=== PATIENT | male | born 1955 | race Caucasian/White ===

== ENCOUNTER 2023-12-06 07:49 | Emergency (ER) | payer BC, OTHER ==
--- OUTSIDE RECORDS SUMMARY | 2023-12-06 07:55 | XMS REPORT | Continuity of Care Document ---
Author Name Unknown Address [address] [place] [address] [facility] Address [address] [place] [address] Care Team Providers Care Textile Science Technician Name Role Phone Lesley Sweeney MD Primary Care Physician Maggie Truong RN Attending Clinician Unavailab Lesley Beyer MD Attending Clinician [phone]- [phone] Lab, Ang - Db Attending Clinician Unavailable LESLEY SWEENEY Attending Clinician Unasalvador meyers Doctor Unassigned, Chandler Attending Clinician U navailable DENISE MORAN Attending Clinician Unavailable Pob, Adc Lab Main Attending Clinician UnavailDenise Mora MD Attending Clinician , Adc Surg Spec Procedure Attending Clinician Unavailable Adelaida Harris Attending Clinician [phone] ADELAIDA BRISCOE Attending Clinician Unavailable Lab, Adc Fam Pob I Attending Clinician Unavailab le Payers Payer Name Policy Type Policy Number Effective Date Expirati on Date Source Problems Condition Name Condition Details Condition Category Status Onset Date Resolution Date Last Treatment Date Treating Clinician Comments Source Bipolar disorder in full remission Bipolar disorder in full remission Disease Active 2015-06 00:00: 00 [facility] Gout Gout Disease Active 2015-06 00:00: 00 [facility] Arthritis Arthritis Disease Active 2015-06- 00:00: 00 [facility] Allergies, Adverse Reactions, Alerts Allergy Name Allergy Type Status Severity Reaction(s) Onset Date Inactive Date Treating Clinician Comments Source NO KNOWN ALLERGIE S Drug Class Active [facility] Social History Social Habit Start Date Stop Date Quantity Comments Source [facility] Exposure to SARS-CoV-2 (event) 2022-10-27 00:00:00 2022-11-06 09:47:00 Not sure [facility] Alcohol intake 2022-11-06 00:00:00 2022-11-06 00:00:00 0 /d [facility] Tobacco use and exposure 2022-11-06 00:00:00 2022-11-06 00:00:00 Smokeless tobacco non-user [facility] History of Social function 2022-11-06 00:00:00 2022-11-06 00:00:00 [facility] Alcoholic beverage intake 2022-11-06 00:00:00 2022-11-06 00:00:00 0 /d [facility] Sex assigned at 1955 00:00:00 1955 00:00:00 [facility] Smoking Status Start Date Stop Date Source Never smoked tobacco [facility] Medications Ordered Medication Name Filled Medication Name Start Date Stop Date Current Medication? Ordering Clinician Indication Dosage Frequency Signature (SIG) Comments Components Source ALLOPURINOL 300 mg tablet 09-24 00:00: 00 Yes [id number] TAKE 1 TABLET BY MOUTH EVERY DAY [facility] TAMSULOSIN 0.4 mg 24 hr capsule 09-22 00:00: 00 Yes [id number] TAKE 1 CAPSULE BY MOUTH EVERY DAY [facility] ALLOPURINOL 300 mg tablet 06-30 00:00: 00 Yes [id number] TAKE 1 TABLET BY MOUTH EVERY DAY [facility] LITHIUM CARBONATE 300 mg capsule 2022-06 00:00: 00 Yes [id number] TAKE 2 CAPSULES BY MOUTH EVERY DAY [facility] ALLOPURINOL 300 mg tablet 2022-06 00:00: 00 06-30 00:00 :00 No [id number] TAKE 1 TABLET BY MOUTH EVERY DAY [facility] TAMSULOSIN 0.4 mg 24 hr capsule 2023-1 0-06 00:00: 00 09-22 00:00 :00 No [id number] TAKE 1 CAPSULE BY MOUTH EVERY DAY [facility] TAMSULOSIN 0.4 mg 24 hr capsule 3-0 9-14 00:00: 00 Yes [id number] TAKE 1 CAPSULE BY MOUTH EVERY DAY [facility] TAMSULOSIN 0.4 mg 24 hr capsule 3-0 8-08 00:00: 00 Yes [id number] TAKE 1 CAPSULE BY MOUTH EVERY DAY [facility] TAMSULOSIN 0.4 mg 24 hr capsule 3-0 7-17 00:00: 00 Yes [id number] TAKE 1 CAPSULE BY MOUTH EVERY DAY [facility] TAMSULOSIN 0.4 mg 24 hr capsule 3-0 6-19 00:00: 00 Yes [id number] TAKE 1 CAPSULE BY MOUTH EVERY DAY [facility] LITHIUM CARBONATE 300 mg capsule 2022-0 4-19 00:00: 00 05-02 00:00 :00 No [id number] TAKE 2 CAPSULES BY MOUTH EVERY DAY [facility] TAMSULOSIN 0.4 mg 24 hr capsule 2022-0 4-19 00:00: 00 12-02 00:00 :00 No [id number] TAKE 1 CAPSULE BY MOUTH EVERY DAY [facility] ALLOPURINOL 300 mg tablet 2022-0 3-30 00:00: 00 04-01 00:00 :00 No [id number] TAKE 1 TABLET BY MOUTH EVERY DAY [facility] lithium carbonate 300 mg capsule 2022-0 3-22 00:00: 00 10-02 00:00 :00 No [id number] TAKE 2 CAPSULES BY MOUTH EVERY DAY [facility] tamsulosin 0.4 mg 24 hr capsule 2022-0 3-22 00:00: 00 10-02 00:00 :00 No [id number] TAKE 1 CAPSULE BY MOUTH EVERY DAY [facility] ALLOPURINOL 300 mg tablet 2021-1 2-29 00:00: 00 09-13 01:06 :16 No [id number] TAKE 1 TABLET BY MOUTH EVERY DAY [facility] ALLOPURINOL 300 mg tablet 2022-0 8-24 00:00: 00 06-13 00:00 :00 No [id number] TAKE 1 TABLET BY MOUTH EVERY DAY [facility] ALLOPURINOL 300 mg tablet 3- 00:00: 00 02-06 00:00 :00 No [id number] TAKE 1 TABLET BY MOUTH EVERY DAY [facility] LITHIUM CARBONATE 300 mg capsule 2020-06 00:00: 00 09-04 00:00 :00 No [id number] TAKE 2 CAPSULES BY MOUTH EVERY DAY [facility] TAMSULOSIN 0.4 mg 24 hr capsule 2020-06 00:00: 00 09-04 00:00 :00 No [id number] TAKE 1 CAPSULE BY MOUTH EVERY DAY [facility] ciprofloxac in HCl 500 mg tablet 08-21 00:00: 00 09-22 00:00 :00 No [id number] 500mg Take 1 tablet by mouth every 12 (twelve) hours. [facility] cephALEXin 250 mg capsule 07-17 00:00: 00 07-23 05:59 :00 No [id number] 500mg Take 2 capsules by mouth every 12 (twelve) hours for 5 days. [facility] ALLOPURINOL 300 mg tablet 1-10 00:00: 00 08-16 00:00 :00 No [id number] TAKE 1 TABLET BY MOUTH EVERY DAY [facility] iohexoL (OMNIPAQUE 300-50 mL)) injection 50 mL 2019-06 16:30: 00 05-23 14:45 :00 No 50mL 50 mL, Urethral, ONCE, 1 dose, 05/23/20 at 1030, Routine [facility] cephALEXin 250 mg capsule 2019-06 00:00: 00 05-22 05:59 :00 No [id number] 500mg Take 2 capsules by mouth every 12 (twelve) hours for 5 days. [facility] LITHIUM CARBONATE 300 mg capsule 2019-06 00:00: 00 06-13 00:00 :00 No [id number] TAKE 2 CAPSULES BY MOUTH EVERY DAY [facility] TAMSULOSIN 0.4 mg 24 hr capsule 2019-06 0-29 00:00: 00 04-27 00:00 :00 No [id number] TAKE 1 CAPSULE BY MOUTH EVERY DAY [facility] tamsulosin 0.4 mg 24 hr capsule 2019-06 0 00:00: 00 Yes [id number] .4mg Take 1 capsule by mouth daily. [facility] allopurinoL 300 mg tablet 2019-06 0 00:00: 00 06-25 00:00 :00 No [id number] 300mg Take 1 tablet by mouth daily. [facility] lithium carbonate 300 mg capsule 2019-06 0 00:00: 00 05-08 00:00 :00 No [id number] 600mg Take 2 capsules by mouth daily. [facility] tamsulosin 0.4 mg 24 hr capsule 8-05 00:00: 04-11 00:00 :00 No [id number] .4mg Take 1 capsule by mouth daily. [facility] allopurinoL 300 mg tablet 8-05 00:00: 00 04-11 00:00 :00 No [id number] 300mg Take 1 tablet by mouth daily. [facility] ALLOPURINOL 300 mg tablet 01-10 00:00: 00 Yes [id number] TAKE 1 TABLET BY MOUTH EVERY DAY [facility] TAMSULOSIN 0.4 mg 24 hr capsule 01-10 00:00: 00 Yes [id number] TAKE 1 CAPSULE BY MOUTH EVERY DAY [facility] TAMSULOSIN 0.4 mg 24 hr capsule 2018-06 2-31 00:00: 00 01-10 00:00 :00 No [id number] TAKE 1 CAPSULE BY MOUTH EVERY DAY [facility] ALLOPURINOL 300 mg tablet 9-04 00:00: 00 Yes [id number] TAKE 1 TABLET BY MOUTH EVERY DAY [facility] LITHIUM CARBONATE 300 mg capsule 0 9-04 00:00: 00 04-11 00:00 :00 No [id number] TAKE 2 CAPSULES BY MOUTH EVERY DAY [facility] TAMSULOSIN 0.4 mg 24 hr capsule 0 4-10 00:00: 00 Yes [id number] TAKE ONE CAPSULE BY MOUTH EVERY DAY [facility] TAMSULOSIN 0.4 mg 24 hr capsule 0 2-08 00:00: 00 Yes TAKE ONE CAPSULE BY MOUTH EVERY DAY [facility] ALLOPURINOL 300 mg tablet 8-23 00:00: 00 Yes [id number] TAKE 1 TABLET BY MOUTH EVERY DAY [facility] LITHIUM CARBONATE 300 mg capsule 8-21 00:00: 00 Yes [id number] TAKE 2 CAPSULES BY MOUTH EVERY DAY [facility] Immunizations Ordered Immunization Name Filled Immunization Name Date Status Comments Source HEP B, Adult Dosage 2020-09-22 00:00:00 Completed [facility] HEP B, Adult Dosage 2020-09-22 00:00:00 Completed [facility] HEP B, Adult Dosage 2020-09-22 00:00:00 Completed [facility] HEP B, Adult Dosage 2020-09-22 00:00:00 Completed [facility] HEP B, Adult Dosage 2020-09-22 00:00:00 Completed [facility] HEP B, Adult Dosage 2020-09-22 00:00:00 Completed [facility] HEP B, Adult Dosage 2020-09-22 00:00:00 Completed [facility] HEP B, Adult Dosage 2020-09-22 00:00:00 Completed [facility] HEP B, Adult Dosage 2020-09-22 00:00:00 Completed [facility] HEP B, Adult Dosage 2020-09-22 00:00:00 Completed [facility] HEP B, Adult Dosage 2020-09-22 00:00:00 Completed [facility] HEP B, Adult Dosage 2020-09-22 00:00:00 Completed [facility] HEP B, Adult Dosage 2020-09-22 00:00:00 Completed [facility] HEP B, Adult Dosage 2020-09-22 00:00:00 Completed [facility] HEP B, Adult Dosage 2020-09-22 00:00:00 Completed [facility] HEP B, Adult Dosage 2020-09-22 00:00:00 Completed [facility] HEP B, Adult Dosage 2020-09-22 00:00:00 Completed [facility] HEP B, Adult Dosage 2020-09-22 00:00:00 Completed [facility] HEP B, Adult Dosage 2020-09-22 00:00:00 Completed [facility] HEP B, Adult Dosage 2020-09-22 00:00:00 Completed [facility] HEP B, Adult Dosage 2020-09-22 00:00:00 Completed [facility] HEP B, Adult Dosage 2020-09-22 00:00:00 Completed [facility] HEP B, Adult Dosage 2020-09-22 00:00:00 Completed [facility] HEP B, Adult Dosage 2020-09-22 00:00:00 Completed [facility] HEP B, Adult Dosage 2020-09-22 00:00:00 Completed [facility] HEP B, Adult Dosage 2020-09-22 00:00:00 Completed [facility] HEP B, Adult Dosage 2020-09-22 00:00:00 Completed [facility] HEP B, Adult Dosage 2020-09-22 00:00:00 Completed [facility] HEP B, Adult Dosage 2020-09-22 00:00:00 Completed [facility] HEP B, Adult Dosage 2020-09-22 00:00:00 Completed [facility] Twinrix (hep a/hep b) 2020-08-21 00:00:00 Completed [facility] TDAP 2020-08-21 00:00:00 Completed [facility] Pneumococcal Polysaccharide, PPSV23 (PNEUMOVAX) 2020-08-21 00:00:00 Completed [facility] Twinrix (hep a/hep b) 2020-08-21 00:00:00 Completed [facility] TDAP 2020-08-21 00:00:00 Completed [facility] Pneumococcal Polysaccharide, PPSV23 (PNEUMOVAX) 2020-08-21 00:00:00 Completed [facility] Twinrix (hep a/hep b) 2020-08-21 00:00:00 Completed [facility] TDAP 2020-08-21 00:00:00 Completed [facility] Pneumococcal Polysaccharide, PPSV23 (PNEUMOVAX) 2020-08-21 00:00:00 Completed [facility] Twinrix (hep a/hep b) 2020-08-21 00:00:00 Completed [facility] TDAP 2020-08-21 00:00:00 Completed [facility] Pneumococcal Polysaccharide, PPSV23 (PNEUMOVAX) 2020-08-21 00:00:00 Completed [facility] Twinrix (hep a/hep b) 2020-08-21 00:00:00 Completed [facility] TDAP 2020-08-21 00:00:00 Completed [facility] Pneumococcal Polysaccharide, PPSV23 (PNEUMOVAX) 2020-08-21 00:00:00 Completed [facility] Twinrix (hep a/hep b) 2020-08-21 00:00:00 Completed [facility] TDAP 2020-08-21 00:00:00 Completed [facility] Pneumococcal Polysaccharide, PPSV23 (PNEUMOVAX) 2020-08-21 00:00:00 Completed [facility] Twinrix (hep a/hep b) 2020-08-21 00:00:00 Completed [facility] TDAP 2020-08-21 00:00:00 Completed [facility] Pneumococcal Polysaccharide, PPSV23 (PNEUMOVAX) 2020-08-21 00:00:00 Completed [facility] Twinrix (hep a/hep b) 2020-08-21 00:00:00 Completed [facility] TDAP 2020-08-21 00:00:00 Completed [facility] Pneumococcal Polysaccharide, PPSV23 (PNEUMOVAX) 2020-08-21 00:00:00 Completed [facility] Twinrix (hep a/hep b) 2020-08-21 00:00:00 Completed [facility] TDAP 2020-08-21 00:00:00 Completed [facility] Pneumococcal Polysaccharide, PPSV23 (PNEUMOVAX) 2020-08-21 00:00:00 Completed [facility] Twinrix (hep a/hep b) 2020-08-21 00:00:00 Completed [facility] TDAP 2020-08-21 00:00:00 Completed [facility] Pneumococcal Polysaccharide, PPSV23 (PNEUMOVAX) 2020-08-21 00:00:00 Completed [facility] Twinrix (hep a/hep b) 2020-08-21 00:00:00 Completed [facility] TDAP 2020-08-21 00:00:00 Completed [facility] Pneumococcal Polysaccharide, PPSV23 (PNEUMOVAX) 2020-08-21 00:00:00 Completed [facility] Twinrix (hep a/hep b) 2020-08-21 00:00:00 Completed [facility] TDAP 2020-08-21 00:00:00 Completed [facility] Pneumococcal Polysaccharide, PPSV23 (PNEUMOVAX) 2020-08-21 00:00:00 Completed [facility] Twinrix (hep a/hep b) 2020-08-21 00:00:00 Completed [facility] TDAP 2020-08-21 00:00:00 Completed [facility] Pneumococcal Polysaccharide, PPSV23 (PNEUMOVAX) 2020-08-21 00:00:00 Completed [facility] Twinrix (hep a/hep b) 2020-08-21 00:00:00 Completed [facility] TDAP 2020-08-21 00:00:00 Completed [facility] Pneumococcal Polysaccharide, PPSV23 (PNEUMOVAX) 2020-08-21 00:00:00 Completed [facility] Twinrix (hep a/hep b) 2020-08-21 00:00:00 Completed [facility] TDAP 2020-08-21 00:00:00 Completed [facility] Pneumococcal Polysaccharide, PPSV23 (PNEUMOVAX) 2020-08-21 00:00:00 Completed [facility] Twinrix (hep a/hep b) 2020-08-21 00:00:00 Completed [facility] TDAP 2020-08-21 00:00:00 Completed [facility] Pneumococcal Polysaccharide, PPSV23 (PNEUMOVAX) 2020-08-21 00:00:00 Completed [facility] Twinrix (hep a/hep b) 2020-08-21 00:00:00 Completed [facility] TDAP 2020-08-21 00:00:00 Completed [facility] Pneumococcal Polysaccharide, PPSV23 (PNEUMOVAX) 2020-08-21 00:00:00 Completed [facility] Twinrix (hep a/hep b) 2020-08-21 00:00:00 Completed [facility] TDAP 2020-08-21 00:00:00 Completed [facility] Pneumococcal Polysaccharide, PPSV23 (PNEUMOVAX) 2020-08-21 00:00:00 Completed [facility] Twinrix (hep a/hep b) 2020-08-21 00:00:00 Completed [facility] TDAP 2020-08-21 00:00:00 Completed [facility] Pneumococcal Polysaccharide, PPSV23 (PNEUMOVAX) 2020-08-21 00:00:00 Completed [facility] Twinrix (hep a/hep b) 2020-08-21 00:00:00 Completed [facility] TDAP 2020-08-21 00:00:00 Completed [facility] Pneumococcal Polysaccharide, PPSV23 (PNEUMOVAX) 2020-08-21 00:00:00 Completed [facility] Twinrix (hep a/hep b) 2020-08-21 00:00:00 Completed [facility] TDAP 2020-08-21 00:00:00 Completed [facility] Pneumococcal Polysaccharide, PPSV23 (PNEUMOVAX) 2020-08-21 00:00:00 Completed [facility] Twinrix (hep a/hep b) 2020-08-21 00:00:00 Completed [facility] TDAP 2020-08-21 00:00:00 Completed [facility] Pneumococcal Polysaccharide, PPSV23 (PNEUMOVAX) 2020-08-21 00:00:00 Completed [facility] Twinrix (hep a/hep b) 2020-08-21 00:00:00 Completed [facility] TDAP 2020-08-21 00:00:00 Completed [facility] Pneumococcal Polysaccharide, PPSV23 (PNEUMOVAX) 2020-08-21 00:00:00 Completed [facility] Twinrix (hep a/hep b) 2020-08-21 00:00:00 Completed [facility] TDAP 2020-08-21 00:00:00 Completed [facility] Pneumococcal Polysaccharide, PPSV23 (PNEUMOVAX) 2020-08-21 00:00:00 Completed [facility] Twinrix (hep a/hep b) 2020-08-21 00:00:00 Completed [facility] TDAP 2020-08-21 00:00:00 Completed [facility] Pneumococcal Polysaccharide, PPSV23 (PNEUMOVAX) 2020-08-21 00:00:00 Completed [facility] Twinrix (hep a/hep b) 2020-08-21 00:00:00 Completed [facility] TDAP 2020-08-21 00:00:00 Completed [facility] Pneumococcal Polysaccharide, PPSV23 (PNEUMOVAX) 2020-08-21 00:00:00 Completed [facility] Twinrix (hep a/hep b) 2020-08-21 00:00:00 Completed [facility] TDAP 2020-08-21 00:00:00 Completed [facility] Pneumococcal Polysaccharide, PPSV23 (PNEUMOVAX) 2020-08-21 00:00:00 Completed [facility] Twinrix (hep a/hep b) 2020-08-21 00:00:00 Completed [facility] TDAP 2020-08-21 00:00:00 Completed [facility] Pneumococcal Polysaccharide, PPSV23 (PNEUMOVAX) 2020-08-21 00:00:00 Completed [facility] Twinrix (hep a/hep b) 2020-08-21 00:00:00 Completed [facility] TDAP 2020-08-21 00:00:00 Completed [facility] Pneumococcal Polysaccharide, PPSV23 (PNEUMOVAX) 2020-08-21 00:00:00 Completed [facility] Twinrix (hep a/hep b) 2020-08-21 00:00:00 Completed [facility] TDAP 2020-08-21 00:00:00 Completed [facility] Pneumococcal Polysaccharide, PPSV23 (PNEUMOVAX) 2020-08-21 00:00:00 Completed [facility] Twinrix (hep a/hep b) 2020-08-21 00:00:00 Completed [facility] TDAP 2020-08-21 00:00:00 Completed [facility] Pneumococcal Polysaccharide, PPSV23 (PNEUMOVAX) 2020-08-21 00:00:00 Completed [facility] Twinrix (hep a/hep b) 2020-08-21 00:00:00 Completed [facility] TDAP 2020-08-21 00:00:00 Completed [facility] Pneumococcal Polysaccharide, PPSV23 (PNEUMOVAX) 2020-08-21 00:00:00 Completed [facility] Twinrix (hep a/hep b) Unknown Completed [facility] TDAP Unknown Completed [facility] Pneumococcal Polysaccharide, PPSV23 (PNEUMOVAX) Unknown Completed [facility] HEP B, Adult Dosage Unknown Completed [facility] Twinrix (hep a/hep b) Unknown Completed [facility] TDAP Unknown Completed [facility] Pneumococcal Polysaccharide, PPSV23 (PNEUMOVAX) Unknown Completed [facility] HEP B, Adult Dosage Unknown Completed [facility] Twinrix (hep a/hep b) Unknown Completed [facility] TDAP Unknown Completed [facility] Pneumococcal Polysaccharide, PPSV23 (PNEUMOVAX) Unknown Completed [facility] HEP B, Adult Dosage Unknown Completed [facility] Twinrix (hep a/hep b) Unknown Completed [facility] TDAP Unknown Completed [facility] Pneumococcal Polysaccharide, PPSV23 (PNEUMOVAX) Unknown Completed [facility] HEP B, Adult Dosage Unknown Completed [facility] Twinrix (hep a/hep b) Unknown Completed [facility] TDAP Unknown Completed [facility] Pneumococcal Polysaccharide, PPSV23 (PNEUMOVAX) Unknown Completed [facility] HEP B, Adult Dosage Unknown Completed [facility] Twinrix (hep a/hep b) Unknown Completed [facility] TDAP Unknown Completed [facility] Pneumococcal Polysaccharide, PPSV23 (PNEUMOVAX) Unknown Completed [facility] HEP B, Adult Dosage Unknown Completed [facility] Twinrix (hep a/hep b) Unknown Completed [facility] TDAP Unknown Completed [facility] Pneumococcal Polysaccharide, PPSV23 (PNEUMOVAX) Unknown Completed [facility] HEP B, Adult Dosage Unknown Completed [facility] Vital Signs Vital Name Observation Time Observation Value Comments S ource Systolic blood pressure 2022-11-06 14:55:00 125 mm[Hg] [facility] Diastolic blood pressure 2022-11-06 14:55:00 82 mm[Hg] [facility] Heart rate 2022-11-06 14:55:00 65 /min [facility] Body height 2022-11-06 14:55:00 165.1 cm [facility] Body weight 2022-11-06 14:55:00 102.513 kg [facility] BMI 2022-11-06 14:55:00 37.61 kg/m2 [facility] Systolic blood pressure 2020-09-22 15:17:00 123 mm[Hg] [facility] Diastolic blood pressure 2020-09-22 15:17:00 59 mm[Hg] [facility] Heart rate 2020-09-22 15:17:00 55 /min [facility] Body temperature 2020-09-22 15:17:00 36.83 Akiko [facility] Body height 2020-09-22 15:17:00 162.6 cm [facility] Body weight 2020-09-22 15:17:00 94.802 kg [facility] BMI 2020-09-22 15:17:00 35.87 kg/m2 [facility] Systolic blood pressure 2020-08-21 19:08:00 129 mm[Hg] [facility] Diastolic blood pressure 2020-08-21 19:08:00 63 mm[Hg] [facility] Heart rate 2020-08-21 19:08:00 70 /min [facility] Body temperature 2020-08-21 19:08:00 35.67 Akiko [facility] Body height 2020-08-21 19:08:00 162.6 cm [facility] Body weight 2020-08-21 19:08:00 95.255 kg [facility] BMI 2020-08-21 19:08:00 36.05 kg/m2 [facility] Systolic blood pressure 2020-07-17 15:45:00 112 mm[Hg] [facility] Diastolic blood pressure 2020-07-17 15:45:00 69 mm[Hg] [facility] Heart rate 2020-07-17 15:45:00 80 /min [facility] Body temperature 2020-07-17 15:45:00 36.83 Akiko [facility] Respiratory rate 2020-07-17 15:45:00 20 /min [facility] Body height 2020-07-17 15:45:00 167.6 cm [facility] Body weight 2020-07-17 15:45:00 95.255 kg [facility] BMI 2020-07-17 15:45:00 33.89 kg/m2 [facility] Oxygen saturation in Arterial blood by Pulse oximetry 2020-07-17 15:45:00 98 /min [facility] Systolic blood pressure 2020-06-05 20:54:00 128 mm[Hg] [facility] Diastolic blood pressure 2020-06-05 20:54:00 75 mm[Hg] [facility] Heart rate 2020-06-05 20:54:00 72 /min [facility] Body temperature 2020-06-05 20:54:00 36.5 Akiko [facility] Body weight 2020-06-05 20:54:00 94.439 kg [facility] BMI 2020-06-05 20:54:00 34.65 kg/m2 [facility] Systolic blood pressure 2020-05-08 17:07:00 116 mm[Hg] [facility] Diastolic blood pressure 2020-05-08 17:07:00 72 mm[Hg] [facility] Heart rate 2020-05-08 17:07:00 53 /min [facility] Body height 2020-05-08 17:07:00 165.1 cm [facility] Body weight 2020-05-08 17:07:00 95.255 kg [facility] BMI 2020-05-08 17:07:00 34.95 kg/m2 [facility] Systolic blood pressure 2020-04-11 13:23:00 115 mm[Hg] [facility] Diastolic blood pressure 2020-04-11 13:23:00 68 mm[Hg] [facility] Heart rate 2020-04-11 13:23:00 54 /min [facility] Body temperature 2020-04-11 13:23:00 36.72 Akiko [facility] Body height 2020-04-11 13:23:00 165.1 cm [facility] Body weight 2020-04-11 13:23:00 92.987 kg [facility] BMI 2020-04-11 13:23:00 34.11 kg/m2 [facility] Procedures Procedure Date / Time Performed Performing Clinician Source ASSIGNMENT OF BENEFITS 2022-11-06 14:49:29 Docto r Unassigned, Chandler [facility] HEPATITIS B VACCINE,ADULT,IM 2020-09-22 15:26:30 Lesley Sweeney [facility] PNEUMOCOCCAL VACCINE, 23-VALENT (PNEUMOVAX) 2020-08-21 19:17:35 Lesley Sweeney [facility] TDAP VACCINE, >11 YRS, IM 2020-08-21 19:16:48 Lesley Mcclain [facility] TWINRIX (HEP A/HEP B)VACCINE 2020-08-21 19:16:48 Lesley Sweeney laurent [facility] URINE CULTURE 2020-07-17 16:19:00 [facility] POCT URINALYSIS AUTO 2020-07-17 15:44:00 Tamar Moran [facility] [place] RETROGRADE URETHROGRAPHY 2020-05-23 16:14:09 Denise Moran [facility] INSURANCE CORRESPONDENCE 2020-05-17 06:01:00 Doc tor Unassigned, Chandler [facility] PATIENT QUESTIONNAIRE 2020-05-08 06:01:00 Doctor Unassigned, Chandler [facility] POCT URINALYSIS AUTO 2020-05-08 00:00:00 Tamar Moran h [facility] INSURANCE CORRESPONDENCE 2020-04-29 06:01:00 Doc tor Unassigned, Chandler [facility] Encounters Start Date/Time End Date/Time Encounter Type Admission Type Attending [facility] Facility Care Department Encounter ID Source 2023-12-06 00:00:00 2023-12-06 07:20:03 Nurse Triage Maggie Truong [facility] 1.2.840.114 350.1.13.10 4.2.7.2.686 [id number] [facility] 2023-09-25 00:00:00 2023-09-25 00:00:00 Refill Lesley Sweeney [facility] BOB?[facility] 1.2.840.114 350.1.13.10 4.2.7.2.686 [id number] [facility] 2023-09-23 00:00:00 2023-09-23 00:00:00 Refill Patel Lesley [facility] BOB?[facility] 1.2.840.114 350.1.13.10 4.2.7.2.686 [id number] [id number] [facility] 2023-06-28 00:00:00 2023-06-28 00:00:00 Refill Dantederek Lesley [facility] BOB?[facility] 1.2.840.114 350.1.13.10 4.2.7.2.686 [id number] [facility] 2023-05-02 00:00:00 2023-05-02 00:00:00 [facility] 1.2840.114 350.1.13.10 4.2.7.2.686 [id number] 044 [id number] [facility] 2023-03-31 00:00:00 2023-03-31 00:00:00 Refill Lesley Sweeney [facility] BOB?[facility] BU[facility] 1.2840.114 350.1.13.10 4.2.7.2.686 [id number] 044 [id number] [facility] 2023-03-21 00:00:00 2023-03-21 00:00:00 Refill Lesley Sweeney [facility] BOB?[facility] BU[facility] 1.2840.114 350.1.13.10 4.2.7.2.686 [id number] 044 [id number] [facility] 2023-02-27 00:00:00 2023-02-27 00:00:00 Refill Lesley Sweeney [facility] 1.2840.114 350.1.13.10 4.2.7.2.686 [id number] 044 [id number] [facility] 2023 00:00:00 2023 00:00:00 RefLesley Burt [facility] BOB?[facility] BUILD[facility] 1.2840.114 350.1.13.10 4.2.7.2.686 [id number] [id number] [facility] 2022-12-30 00:00:00 2022-12-30 00:00:00 Refill Lesley Sweeney [facility] BOB?[facility] BUILD[facility] 1.2840.114 350.1.13.10 4.2.7.2.686 [id number] [id number] [facility] 2022-12-01 00:00:00 2022-12-01 00:00:00 Refill DantesalimaLesley ridley [facility] BOB?[facility] 1.2840.114 350.1.13.10 4.2.7.2.686 [id number] 044 [id number] [facility] 2022-11-06 10:45:00 2022-11-06 11:00:00 Blender Operator Visit Lab, Blair Sweeney Lesley [facility] BOB?[facility] 1.284.114 350.1.13.10 4.2.7.2.686 [id number] [facility] 2022-11-06 10:00:00 2022-11-06 10:45:32 Outpatient R PATEL [facility] [id number] [facility] 2022-11-06 10:00:00 2022-11-06 10:15:00 Office Visit PatelLesley [facility] BOB?[facility] 1.84.114 350.1.13.10 4.2.7.2.686 [id number] 044 [id number] [facility] 2022-11-06 00:00:00 2022-11-06 00:00:00 Orders Only Doctor Unassigned, Chandler [facility] 1.84.114 350.1.13.10 4.2.7.2.686 [id number] [facility] 2022-10-26 00:00:00 2022-10-26 00:00:00 Refill DantederekLesley [facility] BOB?[facility] 1.284.114 350.1.13.10 4.2.7.2.686 [id number] [id number] [facility] 2022-10-16 00:00:00 2022-10-16 00:00:00 Refill DantederekLesley [facility] BOB?[facility] 1.2840.114 350.1.13.10 4.2.7.2.686 [id number] 044 [id number] [facility] 2022-09-29 00:00:00 2022-09-29 00:00:00 [facility] 1.2840.114 350.1.13.10 4.2.7.2.686 [id number] 044 [id number] [facility] 2022-09-29 00:00:00 2022-09-29 00:00:00 Refill Lesley Sweeney [facility] BOB?[facility] 1.2840.114 350.1.13.10 4.2.7.2.686 [id number] 044 [id number] [facility] 2022-09-11 00:00:00 2022-09-11 00:00:00 Refill Lesley Sweeney [facility] BOB?[facility] 1.2840.114 350.1.13.10 4.2.7.2.686 [id number] [id number] [facility] 2022-09-04 00:00:00 2022-09-04 00:00:00 RefLesley Burt [facility] BOB?[facility] 1.2840.114 350.1.13.10 4.2.7.2.686 [id number] 044 [id number] [facility] 2022-06-15 00:00:00 2022-06-15 00:00:00 Refill Lesley Sweeney [facility] BOB?[facility] 1.2840.114 350.1.13.10 4.2.7.2.686 [id number] 044 [id number] [facility] 2022-06-13 00:00:00 2022-06-13 00:00:00 [facility] 1.2.840.114 350.1.13.10 4.2.7.2.686 [id number] 044 [id number] [facility] 2022-06-03 00:00:00 2022-06-03 00:00:00 Telephone [facility] 1.2.840.114 350.1.13.10 4.2.7.2.686 [id number] 044 [id number] [facility] 2022-05-05 00:00:00 2022-05-05 00:00:00 [facility]ill [facility] 1.2840.114 350.1.13.10 4.2.7.2.686 [id number] 044 [id number] [facility] 2022-02-05 00:00:00 2022-02-05 00:00:00 Refill Lesley Sweeney [facility] BOB?[facility] 1.2.840.114 350.1.13.10 4.2.7.2.686 [id number] 044 [id number] [facility] 2022-02-05 00:00:00 2022-02-05 00:00:00 [facility]ill [facility] 1.2.840.114 350.1.13.10 4.2.7.2.686 [id number] 044 [id number] [facility] 2022-02-04 00:00:00 2022-02-04 00:00:00 [facility]ill [facility] 1.2.840.114 350.1.13.10 4.2.7.2.686 [id number] 044 [id number] [facility] 2022-02-01 00:00:00 2022-02-01 00:00:00 Lesley Ochoa [facility] BOB?[facility] 1.2840.114 350.1.13.10 4.2.7.2.686 [id number] 044 [id number] [facility] 2022-01-28 00:00:00 2022-01-28 00:00:00 Lesley Ochoa [facility] BOB?[facility] 1.0.114 350.1.13.10 4.2.7.2.686 [id number] 044 [id number] [facility] 2021-11-13 00:00:00 2021-11-13 00:00:00 Ernst Sweeney [facility] BOB?[facility] 1.0.114 350.1.13.10 4.2.7.2.686 [id number] 044 [id number] [facility] 2021-08-16 00:00:00 2021-08-16 00:00:00 Ernst Sweeney [facility] OFF[facility]ILD[facility] ONE 1..114 350.1.13.10 4.2.7.2.686 [id number] 044 [id number] [facility] 2021-06-13 00:00:00 2021-06-13 00:00:00 RefLesley Burt [facility] OFFICE BUILDING ONE ..114 350.1.13.10 4.2.7.2.686 [id number] 044 [id number] [facility] 2021-04-27 00:00:00 2021-04-27 00:00:00 RefLesley Burt [facility] ONE ..114 350.1.13.10 4.2.7.2.686 [id number] 044 [id number] [facility] 2021-04-23 00:00:00 2021-04-23 00:00:00 Telephone DantesalimakhaiLesley [facility] 1..840.114 350.1.13.10 4.2.7.2.686 [id number] 044 [id number] [facility] 2020-09-22 10:08:32 2020-09-22 10:37:11 Office Visit Lesley Sweeney [facility] Office Building One 1.840.114 350.1.13.10 4.2.7.2.686 [id number] [id number] [facility] 2020-09-22 10:15:00 2020-09-22 10:15:00 Outpatient LESLEY GATICA [facility] [id number] [facility] 2020-08-21 12:44:09 2020-08-21 13:33:15 Office Visit Lesley Sweeney [facility] Office Building One 1.840.114 350.1.13.10 4.2.7.2.686 [id number] [facility] 2020-08-21 13:00:00 2020-08-21 13:00:00 Outpatient LESLEY GATICA [facility] [id number] [facility] 2020-08-18 00:00:00 2020-08-18 00:00:00 Telephone Lesley Sweeney [facility] Office Building One 1.840.114 350.1.13.10 4.2.7.2.686 [id number] [facility] 2020-07-24 13:00:00 2020-07-24 13:00:00 Outpatient DENISE MANE [facility] [id number] [facility] 2020-07-21 08:01:20 2020-07-21 08:16:20 Blender Operator Visit Pogiuliano, Taina [facility] 1.2840.114 350.1.13.10 4.2.7.2.686 [id number] [facility] 2020-07-21 08:00:00 2020-07-21 08:00:00 Outpatient R DENISE MORAN [facility] [id number] [facility] 2020-07-20 00:00:00 2020-07-20 00:00:00 Telephone Dean [facility] Building 1.2840.114 350.1.13.10 4.2.7.2.686 [id number] [facility] 2020-07-17 13:30:00 2020-07-17 13:30:00 Out[facility] [id number] [facility] 2020-07-17 09:12:06 2020-07-17 10:24:27 Office Visit Denise Moran, Adc Surg Spec Procedure [facility] Building 1.2840.114 350.1.13.10 4.2.7.2.686 [id number] [facility] 2020-07-13 00:00:00 2020-07-13 00:00:00 Telephone Dean [facility] Building 1.2840.114 350.1.13.10 4.2.7.2.686 [id number] [facility] 2020-06-24 00:00:00 2020-06-24 00:00:00 Lesley Ochoa [facility] Office Building One 1.2.840.114 350.1.13.10 4.2.7.2.686 [id number] [id number] [facility] 2020-06-05 14:05:12 2020-06-05 15:29:23 Office Visit Adelaida Briscoe [facility] 1.284.114 350.1.13.10 4.2.7.2.686 [id number] [facility] 2020-06-05 14:30:00 2020-06-05 14:30:00 Outpatient R ADELAIDA BRISCOE [facility] [id number] [facility] 2020-05-23 08:00:00 2020-05-23 23:59:00 Hospital Encounter Dean [facility] 1..114 350.1.13.10 4.2.7.2.686 [id number] [facility] 2020-05-23 00:00:00 2020-05-23 00:00:00 Outpatient R DEAN [facility] [id number] [facility] 2020-05-17 00:00:00 2020-05-17 00:00:00 Orders Only Doctor Unassigned, Chandler [facility] 1..114 350.1.13.10 4.2.7.2.686 [id number] [facility] 2020-05-16 00:00:00 2020-05-16 00:00:00 Telephone Dean [facility] 1.84.114 350.1.13.10 4.2.7.2.686 [id number] [facility] 2020-05-08 10:09:55 2020-05-08 11:16:48 Office Visit Dean [facility] 1.284.114 350.1.13.10 4.2.7.2.686 [id number] [facility] 2020-05-08 10:30:00 2020-05-08 10:30:00 Outpatient R DENISE MORAN [facility] [id number] [facility] 2020-05-08 00:00:00 2020-05-08 00:00:00 Orders Only Doctor Unassigned, Chandler [facility] 1.0.114 350.1.13.10 4.2.7.2.686 [id number] [facility] 2020-05-06 00:00:00 2020-05-06 00:00:00 Refill Patel [facility] Office Building One 1.114 350.1.13.10 4.2.7.2.686 [id number] 044 [id number] [facility] 2020-04-29 00:00:00 2020-04-29 00:00:00 Orders Only Doctor Unassigned, Chandler [facility] 1..114 350.1.13.10 4.2.7.2.686 [id number] [facility] 2020-04-13 00:00:00 2020-04-13 00:00:00 Refill Patel [facility] Office Building One .114 350.1.13.10 4.2.7.2.686 [id number] [id number] [facility] 2020-04-11 08:41:53 2020-04-11 08:58:35 Blender Operator Visit Lab, Adc [facility] Pob I Patel [facility] Office Building One .114 350.1.13.10 4.2.7.2.686 [id number] 044 [id number] [facility] 2020-04-11 08:14:13 2020-04-11 08:44:13 Office Visit Patel [facility] Office Building One .114 350.1.13.10 4.2.7.2.686 [id number] [facility] 2020-04-11 08:30:00 2020-04-11 08:30:00 Outpatient LESLEY GATICA [facility] [id number] [facility] 2020-04-11 00:00:00 2020-04-11 00:00:00 Letter (Out) Dantederek [facility] Office Building One 1.840.114 350.1.13.10 4.2.7.2.686 [id number] [id number] [facility] 2020-02-25 00:00:00 2020-02-25 00:00:00 Refvictor manuel Patel [facility] Office Building One 1.840.114 350.1.13.10 4.2.7.2.686 [id number] [id number] [facility] 2020-01-19 00:00:00 2020-01-19 00:00:00 Refvictor manuel Lesley Sweeney [facility] Office Building One 1.2840.114 350.1.13.10 4.2.7.2.686 [id number] 044 [id number] [facility] 2020-01-11 00:00:00 2020-01-11 00:00:00 Ernst Lesley Sweeney [facility] Office Building One 1.2840.114 350.1.13.10 4.2.7.2.686 [id number] [id number] [facility] 2019-02-15 00:00:00 2019-02-15 00:00:00 Ernst Patel [facility] Office Building One 1.84.114 350.1.13.10 4.2.7.2.686 [id number] [id number] [facility] 2019-02-11 00:00:00 2019-02-11 00:00:00 Telephone Lesley Sweeney [facility] Office [facility] One 1.2.840.114 350.1.13.10 4.2.7.2.686 [id number] [facility] 2018-08-03 08:10:00 2018-08-03 07:33:32 Outpatient R LESLEY SWEENEY [facility] [id number] [facility] Results Test Description Test Time Test Comments Results Result Co mments Source [facility] URINALYSIS, [id number] 15:45:00 * Test Item Value Reference Range Interpretation Comme nts POCT U SP GRAV (test code = 3255) 1.020 mg/dl 1.005-1.025 POCT PH U (test code = 3254) 5.5 mg/dl 5-8 POCT U LEUK EST (test code = 3263) moderate Negative - Negative POCT U NIT (test code = 3262) positive Negative - Negati ve POCT U PROT (test code = 3259) negative Negative - Negative POCT U GLU (test code = 3256) negative Negative - Negati ve POCT U KETONE (test code = 3258) negative Negative - Negative POCT U UROBILI (test code = 3260) 0.2 mg/dl 0.2-1 POCT U BILI (test code = 3261) negative Negative - Negative POCT U BLD (test code = 3257) trace Negative - Negati ve POCT U COLOR (test code = 3266) yellow POCT U APPEAR (test code = 3267) [facility]y [facility], [id number] 15:45:00 * Test Item Value Reference Range Interpretation Comme nts POCT U SP GRAV (test code = 3255) 1.020 mg/dl 1.005-1.025 POCT PH U (test code = 3254) 5.5 mg/dl 5-8 POCT U LEUK EST (test code = 3263) moderate Negative - Negative POCT U NIT (test code = 3262) positive Negative - Negati ve POCT U PROT (test code = 3259) negative Negative - Negative POCT U GLU (test code = 3256) negative Negative - Negati ve POCT U KETONE (test code = 3258) negative Negative - Negative POCT U UROBILI (test code = 3260) 0.2 mg/dl 0.2-1 POCT U BILI (test code = 3261) negative Negative - Negative POCT U BLD (test code = 3257) trace Negative - Negati ve POCT U COLOR (test code = 3266) yellow POCT U APPEAR (test code = 3267) cloudy [facility] RET[facility]ADE [id number] 16:27:52 HISTORY: History of weak stream and severe LUTS. COMPARISON: None. TECHNIQUE: Using aseptic precautions, initial attempt to catheterize with 8French Hatfield's catheter proved unsuccessful. Subsequentlya 5 Frenchcatheter was inserted into slowly, only into the external meatus. Noballoon inflation wasutilized. Using intermittent fluoroscopy, contrast medium was injected and multiplefluoroscopic digital radiographs were obtained. Patient tolerated theprocedure well and experienced no apparent complications. FINDINGS: Entire penile urethra appears normal. Bulbous, membranous urethraand prostatic urethra/verumontanum region appear normal. CONCLUSIONS: Stricture at the external urethral meatus noted, otherwisenormal retrograde urethrogram study. [facility], Radiant Results Inft User - 05/23/2020 10:28 AM CSTHISTORY: History of weak stream and severe LUTS.COMPARISON: None.TECHNIQUE: Using aseptic precautions, initial attempt to catheterize with 8French Hatfield's catheter proved unsuccessful. Subsequently a 5 Frenchcatheter was inserted into slowly, only into the external meatus. Noballoon inflation was utilized. Using intermittent fluoroscopy, contrast medium was injected and multiplefluoroscopic digital radiographs were obtained. Patient tolerated theprocedure well and experienced no apparent complications.FINDINGS: Entire penile urethra appears normal. Bulbous, membranous urethraand prostatic urethra/verumontanum region appear normal.CONCLUSIONS: Stricture at the external urethral meatusnoted, otherwisenormal retrograde urethrogram study.[facility] POCT URINALYSIS, [id number] 16:54:00* Test Item Value Reference Range Interpretation Comme nts POCT U SP GRAV (test code = 3255) 1.015 mg/dl 1.005-1.025 POCT PH U (test code = 3254) 5.5 mg/dl 5-8 POCT U LEUK EST (test code = 3263) Small Negative - Negative POCT U NIT (test code = 3262) Negative Negative - Negative POCT U PROT (test code = 3259) Negative Negative - Negative POCT U GLU (test code = 3256) Negative Negative - Negative POCT U KETONE (test code = 3258) Negative Negative - Negative POCT U UROBILI (test code = 3260) 0.2 mg/dl 0.2-1 POCT U BILI (test code = 3261) Negative Negative - Negative POCT U BLD (test code = 3257) Negative Negative - Negative POCT U COLOR (test code = 3266) Dark Yellow POCT U APPEAR (test code = 3267) Slightly Cloudy [facility], [id number] 16:54:00 * Test Item Value Reference Range Interpretation Comme nts POCT U SP GRAV (test code = 3255) 1.015 mg/dl 1.005-1.025 POCT PH U (test code = 3254) 5.5 mg/dl 5-8 POCT U LEUK EST (test code = 3263) Small Negative - Negative POCT U NIT (test code = 3262) Negative Negative - Negative POCT U PROT (test code = 3259) Negative Negative - Negative POCT U GLU (test code = 3256) Negative Negative - Negative POCT U KETONE (test code = 3258) Negative Negative - Negative POCT U UROBILI (test code = 3260) 0.2 mg/dl 0.2-1 POCT U BILI (test code = 3261) Negative Negative - Negative POCT U BLD (test code = 3257) Negative Negative - Negative POCT U COLOR (test code = 3266) Dark Yellow POCT U APPEAR (test code = 3267) Slightly Cloudy [facility] Notes Date/Time Note Provider Source 2023-12-06 07:08:00 [id number]:08:00F ormatting of this note might be different from the original.Regarding: can't urinate x 4hrs----- Message from Lenka Lemon sent at 12/06/2023 7:08 AM CDT -----can't urinate x 4 hoursnothing comes out when he urinatespain in groin and stomach x 4hours [id number] encounter NltrMR2029-08-30N95:08:48Telephon e encounter [id number]. [id number] for patient bwog06213-4CdavPLOGGSQHWVCTfwvbis ed C-CDA narrative [id number] A Esber [address] Be[id number] 701VGNZTZKYJIWMQHJHWTUVQU5371-28- 22T07:08:481.2.840.603652.1.72.3. 15|1.2.840.143497.1.13.104.2.7.2. [id number] Maggie Truong RN [facility] 2023-12-06 07:08:00 [id number] ormatting of this note might be different from the original.Adult Triage AssessmentLast Clinic Visit: 11/06/2022-PCP for Bipolar disorder checkPrimary Symptom: Unable to urinate x4 hoursOnset / Duration: Began at 0300 this morningLocation / Description: Bladder is full with a lot of pressure.Pain / Severity: 9/10Associated Symptoms: Unable to stand straight up due to pain.Fever / Method: DeniesHydration: One glass of water and tea, still unable to urinateTreatment so far: NoneEffect on ADL's: SignificantLMP: n/aPre-existing condition / Immunocompromised: DeniesReason for Disposition[1] Unable to urinate (or only a few drops) > 4 hours AND [2] bladder feels very full (e.g., palpable bladder or strong urge to urinate)Protocols used: Urinary Pjyhrvqq-EXAPF-WOWepfbfz calls stating that he has been unable to urinate for 4+ hours this morning. RN reviews Urinary Symptoms-Adult Protocol and advises patient go to the ED for further evaluation. Patient verbalizes understanding and states he will call his daughter to drive him to the [facility] ED. [id number] encounter [id number] e encounter [id number] for patient [id number] ed C-CDA narrative [address] [id number] [facility]"
[2023-12-06] MEDS ORDERED: LIDOCAINE HCL JELLY 2% 6 ML SYRINGE TOP ONE (08:12)
[2023-12-06 11:06] LABS: Specific Gravity 1.012 (1.005-1.030); Sqamous Epithelial None Seen /HPF (None Seen); Urine Bacteria <20 /HPF (<20); Urine Bilirubin NEGATIVE (Negative); Urine Blood 1+ (Negative); Urine Clarity Extremely Turbid (Clear); Urine Color Light-Orange (Yellow); Urine Culture Reflex Order REFLEXED; Urine Glucose NEGATIVE (Negative); Urine Ketones NEGATIVE (Negative); Urine Micro Reflex YN NO BILL MICROSCOPIC; Urine Nitrite NEGATIVE (Negative); Urine Protein TRACE (Negative); Urine RBC 21-50 /HPF (None Seen); Urine Urobilinogen Normal (Normal); Urine WBC >50 /HPF (<5); Urine WBC Clump Occasional /HPF (None Seen); Urine pH 5.5 (5.0-7.0)
--- NOTE | 2023-12-06 11:13 | ER ---
Nurse's Notes [facility] Name: Bishop Pool Age: 68 yrs Sex: Male : 1955 Arrival Date: 12/06/2023 Time: 07:49 Bed 7 Private MD: Diagnosis: Urinary retention;Urethral stricture Presentation: 12/05 08:01 Chief complaint: Has been unable to urinate since 0300 today. Coronavirus screen: At hb this time, the client does not indicate any symptoms associated with coronavirus-19. Ebola Screen: No symptoms or risks identified at this time. Risk Assessment: Do you want to hurt yourself or someone else? Patient reports no desire to harm self or others. Onset of symptoms was December 06, 2023 at 03:00. 08:01 Method Of Arrival: Ambulatory hb 08:01 Acuity: TACHO 2 hb 11:28 Initial Sepsis Screen: Does the patient meet any 2 criteria? No. Patient's initial le1 sepsis screen is negative. Does the patient have a suspected source of infection? No. Patient's initial sepsis screen is negative. Historical: - Allergies: 09:09 No Known Allergies; db - Home Meds: 09:12 [place] Carbonate Oral [Active]; allopurinol Oral [Active]; tamsulosin oral [Active]; db - PMHx: 09:12 ENLARGED PROSTATE; Bipolar disorder; Gout; db - Immunization history:: Adult Immunizations unknown. - Infectious Disease History:: Denies. - Family history:: not pertinent. - Social history:: Smoking status: Patient denies any tobacco usage or history of. Screenin:02 [facility] ED Fall Risk Assessment (Adult) History of falling in the last 3 months, db including since admission No falls in past 3 months (0 pts) Confusion or Disorientation No (0 pts) Intoxicated or Sedated No (0 pts) Impaired Gait No (0 pts) Mobility Assist Device Used No (0 pt) Altered Elimination No (0 pt) Score/Fall Risk Level 0 - 2 = Low Risk Oriented to surroundings, Maintained a safe environment. Abuse screen: Denies threats or abuse. Denies injuries from another. Nutritional screening: No deficits noted. Tuberculosis screening: No symptoms or risk factors identified. Assessment: 08:10 Reassessment: Patient appears in no apparent distress at this time. Patient and/or db family updated on plan of care and expected duration. Pain level reassessed. Patient is alert, oriented x 3, equal unlabored respirations, skin warm/dry/pink. 08:45 Reassessment: Patient appears in no apparent distress at this time. Patient and/or db family updated on plan of care and expected duration. Pain level reassessed. Patient is alert, oriented x 3, equal unlabored respirations, skin warm/dry/pink. ATTEMPTED MORRELL ACCESS UNABLE TO PLACE MORRELL. NOTIFIED CHARGE NURSE. CHARGE NURSE ATTEMPTED BUT UNSUCCESSFUL. NOTIFIED DR. WOODS. DR. WOODS ABLE TO DO STRAIGHT CATH UNABLE TO PLACE MORRELL. NOTED CLEAR URINE RETURN. General: Appears in no apparent distress. comfortable, Behavior is calm, cooperative. Pain: Complains of pain in pelvis. Neuro: Level of Consciousness is awake, alert, obeys commands, Oriented to person, place, time, situation. Vital Signs: 09:11 BP 130 / 83; Pulse 72; Resp 18; Temp 97.8; Pulse Ox 100% ; Weight 99.79 kg; Height 5 db ft. 5 in. ; 09:11 Body Mass Index 36.61 (99.79 kg, 165.1 cm) db ED Course: 07:54 Patient arrived in ED. im 07:54 Pancho Woods MD is Attending Physician. rt 08:02 Triage completed. hb 08:02 Helen Villegas, RN is Primary Nurse. db 08:02 Arm band placed on left wrist. hb 08:[address] X [address] WOODS. db 08:45 Straight cath inserted, using sterile technique, STRAIGHT CATH INSERTED. db 09:14 Patient has correct armband on for positive identification. Bed in low position. Call db light in reach. Side rails up X 1. Provided Education on: URINE. Pulse ox on. NIBP on. Warm blanket given. 11:12 Luis Carlos Dodson MD is Referral Physician. rt 11:28 No provider procedures requiring assistance completed. le1 11:29 Patient did not have IV access during this emergency room visit. le1 Administered Medications: No medications were administered Medication: 09:02 VIS not applicable for this client. db Outcome: 11:13 Discharge ordered by . rt 11:28 Discharged to home ambulatory, le1 11:28 Condition: stable 11:28 Discharge instructions given to patient, Instructed on discharge instructions, follow up and referral plans. Demonstrated understanding of instructions, follow-up care, medications, Prescriptions given X 1, 11:30 Patient left the ED. le1 Signatures: Kerry Doll, RN RN Helen Chan RN RN db [place], Ryan, MD MD rt Mendoza, Itzel im English, LaKendric, RN RN le1
--- NOTE | 2023-12-06 11:13 | EDPHYS ---
Physician Documentation [facility] Name: Bishop Pool Age: 68 yrs Sex: Male : 1955 Arrival Date: 12/06/2023 Time: 07:49 Bed 7 Private MD: ED Physician Pancho Ramos HPI: 12/05 14:30 This 68 yrs old Male presents to ER via Ambulatory with complaints of Urinary Problem, rt Urinary Retention. 14:30 Patient presents to the ED with urinary retention. Patient has not been able to void rt since about 2 AM. Patient has had a slow decrease in the amount of urination for the past several days. Denies other acute complaints at this time, symptoms are moderate in severity, no other aggravating or alleviating factors.. Historical: - Allergies: :09 No Known Allergies; db - Home Meds: 09:12 [place] Carbonate Oral [Active]; allopurinol Oral [Active]; tamsulosin oral [Active]; db - PMHx: 09:12 ENLARGED PROSTATE; Bipolar disorder; Gout; db - Immunization history:: Adult Immunizations unknown. - Infectious Disease History:: Denies. - Family history:: not pertinent. - Social history:: Smoking status: Patient denies any tobacco usage or history of. ROS: 14:30 Constitutional: Negative for fever, chills, and weight loss, Cardiovascular: Negative rt for chest pain, palpitations, and edema, Respiratory: Negative for shortness of breath, cough, wheezing, and pleuritic chest pain, MS/Extremity: Negative for injury and deformity, Skin: Negative for injury, rash, and discoloration, 14:30 Abdomen/GI: Positive for abdominal pain, nausea, 14:30 : Positive for Urinary retention, Exam: 14:30 Constitutional: This is a well developed, well nourished patient who is awake, alert, rt and in no acute distress. Head/Face: Normocephalic, atraumatic. Skin: Warm, dry with normal turgor. Normal color with no rashes, no lesions, and no evidence of cellulitis. MS/ Extremity: Pulses equal, no cyanosis. Neurovascular intact. Full, normal range of motion. Neuro: Awake and alert, GCS 15, oriented to person, place, time, and situation. Cranial nerves II-XII grossly intact. Motor strength 5/5 in all extremities. Sensory grossly intact. Cerebellar exam normal. Normal gait. 14:30 Abdomen/GI: Fullness, tenderness to the suprapubic region, 14:30 : Stricture noted at the external urethral meatus, completely occluding the urethra, Vital Signs: 09:11 BP 130 / 83; Pulse 72; Resp 18; Temp 97.8; Pulse Ox 100% ; Weight 99.79 kg; Height 5 db ft. 5 in. ; 09:11 Body Mass Index 36.61 (99.79 kg, 165.1 cm) db Procedures: 14:30 Unable to pass [place] catheter through narrow stricture. A straight rt catheterization was able to be passed through, about 800 cc of urine were removed, patient able to void following that.. MDM: 07:58 Patient medically screened. rt 14:30 Differential Diagnosis BPH, urethral stricture. Data reviewed: vital signs, nurses rt notes, lab test result(s). Care significantly affected by the following chronic conditions: BPH. ED course: Patient able to void following catheterization with catheter. Postvoid is less than 200. Questionable UTI, will treat with antibiotics. Patient to follow-up with urologist as an outpatient. Return precautions were discussed.. 12/05 08:01 Order name: UAM; Complete Time: 11:08 rt 12/05 11:10 Order name: Urine Culture [facility] 12/05 08:01 Order name: [place]; Complete Time: 08:56 rt 12/05 10:13 Order name: Bladder Scanner; Complete Time: 10:48 ld1 Administered Medications: No medications were administered Disposition Summary: 12/06/23 11:13 Discharge Ordered Notes: Location: Home rt Problem: new rt Symptoms: have improved rt Condition: Stable rt Diagnosis - Urinary retention rt - Urethral stricture rt Followup: rt - With: Luis Carlos Dodson MD - When: 5 - 6 days - Reason: Discharge Instructions: - Discharge Summary Sheet rt - Acute Urinary Retention, Male rt - Urethral Stricture rt Forms: - Medication Reconciliation Form rt - Antibiotic Education rt - Prescription Opioid Use rt - Patient Portal Instructions rt - Leadership Thank You Letter rt Prescriptions: - Cephalexin 500 mg Oral capsule - take 1 capsule ORAL route every 8 hours for 7 days; 21 capsule; Refills: 0, rt Product Selection Permitted Signatures: Dispatcher [employer] Diamond Schneider RN RN ld1 Helen Villegas, RN RN db Pancho Ramos MD MD rt
[2023-12-06 11:49] VITALS: BP 130/83; TEMP 97.8; O2SAT 100
== END 2023-12-06 11:30 | disposition home or self-care (01) ==
LOC: ER 07:49
DX: R33.9 Retention of urine, unspecified (principal); N35.919 Unspecified urethral stricture, male, unspecified site
CPT/HCPCS: 51702; 81001; 87077; 87086; 87088; 87186; 99284